=== PATIENT | male | born 1995 | race Hispanic/Latino ===

== ENCOUNTER 2022-01-16 10:23 | Emergency (ER) | payer SELFPAY ==
[~2022-01-16] VITALS: Ht 177.8 cm; Wt 87.3 kg
[2022-01-16] MEDS ORDERED: SODIUM CHLORIDE 0.9% 1000ML 1,000 ML IV STA (10:48)
[2022-01-16] MEDS ORDERED: OMEPRAZOLE40 MG PO (10:59)
[2022-01-16] MEDS ORDERED: ONDANSETRON ODT4 MG PO (10:59)
[2022-01-16] MEDS ORDERED: KETOROLAC TROMETHAMINE 30 MG/ML VIAL IV ONE (11:00)
[2022-01-16] MEDS ORDERED: FAMOTIDINE 20 MG/2 ML VIAL IV ONE ×2 (11:00→11:06)
[2022-01-16] MEDS ORDERED: KETOROLAC TROMETHAMINE 30 MG/ML VIAL ONE (11:06)
[2022-01-16] MEDS ORDERED: SODIUM CHLORIDE 0.9% 1000ML 1,000 ML ONE (11:06)
== END 2022-01-16 11:33 | disposition home or self-care (01) ==
LOC: FSED 10:49
DX: K27.9 Peptic ulcer, site unspecified, unspecified as acute or chronic, without hemorrhage or perforation (principal); K29.70 Gastritis, unspecified, without bleeding
CPT/HCPCS: 80048; 80076; 81003; 85025; 96374; 96375; 99283; J1885; J7030